=== PATIENT | female | born 1950 | race Caucasian/White ===

== ENCOUNTER 2017-04-23 19:41 | Inpatient (IN) | payer MEDICARE ==
[~2017-04-23] VITALS: Ht 166.4 cm; Wt 68.9 kg
--- NOTE | 2017-04-23 19:46 | ED.ADGEN ---
Past History Past Medical History: Depression, Other Adult General Chief Complaint Chief Complaint " I am thinking about killing my self by cutting my wrist... I have depression.. and do take meds.. but my boyfriend of 5 years just broke up with me.. I tried to kill myself before.. with over dosages..and I fell like I am running a fever too..." " I am afraid I will act on my thought to kill myself.. I got to get help..." HPI HPI Patient is a 67 year old female referred from [place] where she gets her care for depression. Pt. called ex and reported suicidal ideation and exacerbation of her depression. Patient [facility] her depression [facility] the [facility] from [place]. . Patient refused was refused acceptance at [facility] because patient may require acute admission. Patient denies any ingestion of drugs other than those are prescribed to her. Pt. patient is extremely anxious she may act upon her and impulses to kill herself. Patient also complaining of generalized myalgia, arthralgia, malaise, rhinorrhea and pharyngitis. No recent travel or specific ill contacts. No history immunosuppression. Pt. states she feels hopeless, because of breakup with boy friend. Pt has chronic insomnia, but now it is worse. Pt. has past hx PTSD, Bipolar, ADD and ADHD, Sleep apnea. Pt. states she has been taking her Abilify, citalopram and hydroxyzine manage by [place]. Review of Systems Review of Systems Constitutional: Complaints of fever or chills [] Eyes: Denies change in visual acuity, redness, or eye pain [] HENT: Complaints of nasal congestion and sore throat [] Respiratory: Denies cough or shortness of breath [] Cardiovascular: No additional information not addressed in HPI [] GI: Denies abdominal pain, nausea, vomiting, bloody stools or diarrhea [] : Denies dysuria or hematuria [] Musculoskeletal: Complaints of generalized malaise, myalgia and arthralgia Integument: Denies rash or skin lesions [] Neurologic: Denies headache, focal weakness or sensory changes [] Endocrine: Denies polyuria or polydipsia [] All other systems were reviewed and found to be within normal limits, except as documented in this note. Family History Family History Non-contributory Current Medications Current Medications Current Medications Medications (Trade) Dose Ordered Sig/Ritika Start Time Stop Time Status Last Admin Dose Admin Lactated Ringer's 1,000 ml @ 1,000 mls/hr 1X ONCE 04/23/17 21:00 04/23/17 21:59 DC 04/23/17 21:00 1,000 MLS/HR Oseltamivir Phosphate (Tamiflu) 75 mg 1X ONCE 04/23/17 21:45 04/23/17 21:46 DC 04/23/17 21:45 75 MG See Nursing for Home Meds. Allergies Allergies Allergies Coded Allergies Type Severity Reaction Last Updated Verified Penicillins Allergy Intermediate 04/23/17 Yes Sulfa (Sulfonamide Antibiotics) Allergy Intermediate 04/23/17 Yes Physical Exam Physical Exam Constitutional: Well developed, well nourished, in acute emotional distress, non -toxic appearance. [] HENT: Normocephalic, atraumatic, bilateral external ears normal, oropharynx moist, no oral exudates, nose normal. [] Eyes: PERRLA, EOMI, conjunctiva normal, no discharge. [] Neck: Normal range of motion, no tenderness, supple, no stridor. [] Cardiovascular:Heart rate regular rhythm, no murmur [] Lungs & Thorax: Bilateral breath sounds clear to auscultation [] Abdomen: Bowel sounds normal, soft, no tenderness, no masses, no pulsatile masses. [] Skin: Warm, dry, no erythema, no rash. [] Back: No tenderness, no CVA tenderness. [] Extremities: No tenderness, no cyanosis, no clubbing, ROM intact, no edema. [] Neurologic: Alert and oriented X 3, normal motor function, normal sensory function, no focal deficits noted. [] Psychologic: Affect very anxious, judgement normal, mood very depressed Current Patient Data Vital Signs Vital Signs Date Time Temp Pulse Resp B/P (MAP) Pulse Ox O2 Delivery O2 Flow Rate FiO2 04/23/17 19:50 100.4 81 20 95 Room Air Lab Results Laboratory Tests Test 04/23/17 20:05 04/23/17 21:50 Influenza Type A (Rapid) Negative (NEGATIVE) Influenza Type B (Rapid) Positive (NEGATIVE) Group A Streptococcus Rapid Negative (NEGATIVE) White Blood Count 4.0 x10^3/uL (4.0-11.0) Red Blood Count 4.17 x10^6/uL (3.50-5.40) Hemoglobin 13.0 g/dL (12.0-15.5) Hematocrit 37.0 % (36.0-47.0) Mean Corpuscular Volume 89 fL (79-100) Mean Corpuscular Hemoglobin 31 pg (25-35) Mean Corpuscular Hemoglobin Concent 35 g/dL (31-37) Red Cell Distribution Width 12.9 % (11.5-14.5) Platelet Count 177 x10^3/uL (140-400) Neutrophils (%) (Auto) 76 % (31-73) H Lymphocytes (%) (Auto) 18 % (24-48) L Monocytes (%) (Auto) 6 % (0-9) Eosinophils (%) (Auto) 0 % (0-3) Basophils (%) (Auto) 1 % (0-3) Neutrophils # (Auto) 3.0 x10^3uL (1.8-7.7) Lymphocytes # (Auto) 0.7 x10^3/uL (1.0-4.8) L Monocytes # (Auto) 0.2 x10^3/uL (0.0-1.1) Eosinophils # (Auto) 0.0 x10^3/uL (0.0-0.7) Basophils # (Auto) 0.0 x10^3/uL (0.0-0.2) Prothrombin Time 10.7 SEC (9.4-11.4) Prothrombin Time INR 1.0 (0.9-1.1) PTT 29 SEC (23-33) Urine Collection Type Unknown Urine Color Yellow Urine Clarity Hazy Urine pH 6.0 Urine Specific [place] 1.015 Urine Protein Neg (NEG-TRACE) Urine Glucose (UA) Neg mg/dL (NEG) Urine Ketones (Stick) Neg mg/dL (NEG) Urine Blood Mod (NEG) Urine Nitrite Neg (NEG) Urine Bilirubin Neg (NEG) Urine Urobilinogen Dipstick 0.2 mg/dL (0.2 mg/dL) Urine Leukocyte Esterase Neg (NEG) Urine RBC 6-10 /HPF (0-2) Urine WBC Occ /HPF (0-4) Urine Squamous Epithelial Cells Occ /LPF Urine Bacteria 0 /HPF (0-FEW) Urine Mucus Slight /LPF Sodium Level 129 mmol/L (136-145) L Potassium Level 3.8 mmol/L (3.5-5.1) Chloride Level 94 mmol/L (98-107) L Carbon Dioxide Level 26 mmol/L (21-32) Anion Gap 9 (6-14) Blood Urea Nitrogen 10 mg/dL (7-20) Creatinine 0.8 mg/dL (0.6-1.0) Estimated GFR (Cockcroft-Gault) 71.8 Glucose Level 107 mg/dL (70-99) H Calcium Level 8.7 mg/dL (8.5-10.1) Magnesium Level 1.8 mg/dL (1.8-2.4) Total Bilirubin 0.2 mg/dL (0.2-1.0) Direct Bilirubin 0.1 mg/dL (0.0-0.2) Aspartate Amino Transferase (AST) 23 U/L (15-37) Alanine Aminotransferase (ALT) 26 U/L (14-59) Alkaline Phosphatase 60 U/L (46-116) Troponin I Quantitative < 0.017 ng/mL (0-0.055) Total Protein 6.6 g/dL (6.4-8.2) Albumin 3.4 g/dL (3.4-5.0) Lipase 157 U/L (73-393) Urine Opiates Screen Neg (NEG) Urine Methadone Screen Neg (NEG) Urine Barbiturates Neg (NEG) Urine Phencyclidine Screen Neg (NEG) Urine Amphetamine/Methamphetamine Neg (NEG) Urine Benzodiazepines Screen Neg (NEG) Urine Cocaine Screen Neg (NEG) Urine Cannabinoids Screen Neg (NEG) Ethyl Alcohol Level < 10 mg/dL (0-10) Urine Ethyl Alcohol Neg (NEG) EKG EKG My interpretation EKG shows a sinus rhythm at 77 bpm. This nonspecific contour abnormalities in anterior lateral leads. But no findings acute STEMI with contralateral changes.[] Radiology/Procedures Radiology/Procedures My interpretation of chest x-ray shows no acute cardiopulmonary findings.[] Course & Med Decision Making Course & Med Decision Making Pertinent Labs and Imaging studies reviewed. (See chart for details) Discussed presentation, testing and tx. plan with Dr. Fischer- pt. to be inpatient psych. See Tele psych. report. Discussed presentation, testing and tx. plan with Dr. Peña- Admit for SI, Depression, Hyponatremia, and + Infl. B [] Final Impression Final Impression 1. Depression 2. Suicidal ideation[] 3. Hyponatremia 4. + Influenza B Problems: Dragon Disclaimer Dragon Disclaimer This electronic medical record was generated, in whole or in part, using a voice recognition dictation system. JEANNE LU MD Apr 23, 2017 19:46
[2017-04-23] MEDS ORDERED: IV RINGERS SOLUTION,LACTATED 1,000 ML IV ONE (21:00)
[2017-04-23 21:15] LABS: INFLUENZA A PATIENT NEGATIVE (NEGATIVE); INFLUENZA B PATIENT POSITIVE (NEGATIVE)
[2017-04-23] MEDS ORDERED: OSELTAMIVIR 75 MG CAPSULE PO ONE (21:45)
[2017-04-23 22:17] LABS: BASO % 1 % (0-3); EOS % 0 % (0-3); LYMPH # 0.7 x10^3/uL (1.0-4.8); LYMPH % 18 % (24-48); MEAN CORPUSCULAR HEMOGLOBIN 31 pg (25-35); MEAN CORPUSCULAR HGB CONC 35 g/dL (31-37); MEAN CORPUSCULAR VOLUME 89 fL (79-100); MONO # 0.2 x10^3/uL (0.0-1.1); MONO % 6 % (0-9); NEUT % 76 % (31-73); PLATELET COUNT 177 x10^3/uL (140-400); RED BLOOD COUNT 4.17 x10^6/uL (3.50-5.40); RED CELL DISTRIBUTION WIDTH 12.9 % (11.5-14.5)
[2017-04-23 22:29] LABS: ALBUMIN 3.4 g/dL (3.4-5.0); CALCIUM 8.7 mg/dL (8.5-10.1); CREATININE 0.8 mg/dL (0.6-1.0); DIRECT BILIRUBIN 0.1 mg/dL (0.0-0.2); GFR 71.8; MAGNESIUM 1.8 mg/dL (1.8-2.4); POTASSIUM 3.8 mmol/L (3.5-5.1); TOTAL BILIRUBIN 0.2 mg/dL (0.2-1.0); TOTAL PROTEIN 6.6 g/dL (6.4-8.2)
[2017-04-23 22:44] LABS: AMPHETAMINE/METHAMPHETAMINE NEG (NEG); BARBITURATES NEG (NEG); BENZODIAZEPINES NEG (NEG); CANNABINOIDS NEG (NEG); COCAINE NEG (NEG); METHADONE NEG (NEG); OPIATES NEG (NEG); PHENCYCLIDINE NEG (NEG)
[2017-04-23 22:51] LABS: BACTERIA,URINE 0 /HPF (0-FEW); BILIRUBIN,URINE NEG (NEG); CLARITY,URINE HAZY; COLOR,URINE YELLOW; GLUCOSE,URINE NEG (NEG); NITRITE,URINE NEG (NEG); SQUAMOUS EPITHELIAL CELL,UR OCC /LPF; UROBILINOGEN,URINE 0.2 mg/dL (0.2 mg/dL); WBC,URINE OCC /HPF (0-4)
[2017-04-24] MEDS ORDERED: LORazepam 1 MG TABLET PO PRN (00:15)
[2017-04-24] MEDS ORDERED: ONDANSETRON PF 4 MG/2 ML VIAL. IV PRN (00:15)
[2017-04-24] MEDS ORDERED: OLANZapine 2.5 MG TABLET PO ONE (00:30)
--- NOTE | 2017-04-24 01:25 | EKG ---
[address] [address] Test Date: 2017-04-23 Test Time: 21:08:17 Pat Name: MYA GARAY Department: Room: 125 B Gender: F [employer] Supervisor: NATALIE : 1950 Requested By: JEANNE LU Order Number: [id number] Reading MD: Wyatt Lainez MD Measurements Intervals [place] Rate: 77 P: 61 WI: 156 QRS: 40 QRSD: 78 T: 51 QT: 364 QTc: 414 Interpretive Statements SINUS RHYTHM Electronically Signed On 04-27-2017 10:58:39 CASE LINER by Wyatt Lainez MD
[2017-04-24] MEDS: ACETAMINOPHEN 500 MG TABLET PO PRN ×2 (01:49→16:05)
[2017-04-24 01:53] VITALS: BP 112/72
[2017-04-24] MEDS ORDERED: PNEUMOCOCCAL VAX SCREEN. MC PRN (02:45)
[2017-04-24] MEDS ORDERED: CITA20TA5 PO (05:10)
[2017-04-24] MEDS ORDERED: ARIP5TAB13 PO (05:11)
[2017-04-24 05:29] VITALS: BP 89/55
[2017-04-24] MEDS ORDERED: HYDR10TA2 PO (07:32)
--- NOTE | 2017-04-24 07:46 | RAD ---
Portable chest, 04/23/2017: History: Cough, cold, sinus drainage The heart size and pulmonary vascularity are normal. The lungs are clear. There is no evidence of pleural fluid. IMPRESSION: No acute cardiopulmonary abnormality is detected.
[2017-04-24] MEDS ORDERED: PNEUMOC CONJ VACC 23-VALENT 0.5 ML VIAL. VAX IM ONE (09:00)
[2017-04-24] MEDS: IV NORMAL SALINE 1,000ML 1,000 ML IV SCH ×3 (09:00→19:13)
[2017-04-24] MEDS: OSELTAMIVIR 75 MG CAPSULE PO SCH ×2 (09:53→20:08)
[2017-04-24] MEDS: MVI, ADULT NO.4 WITH VIT K 10 ML, FOLIC ACID 1 MG, THIAMINE 100 MG in IV NORMAL SALINE ... IV SCH ×4 (09:55)
[2017-04-24 11:08] VITALS: BP 97/62
[2017-04-24 13:56] LABS: CREATININE 0.8 mg/dL (0.6-1.0); GFR 71.8; POTASSIUM 3.4 mmol/L (3.5-5.1)
[2017-04-24 15:52] VITALS: BP 96/58
--- NOTE | 2017-04-24 18:35 | HP ---
ADMIT DATE: 04/23/2017 HISTORY OF PRESENT ILLNESS: The patient is a 67-year-old female patient who was referred from the [place] where she gets her care for depression and she called her ex- and reported suicidal ideation exacerbation of her depression. She is normally followed by Dr. Rodriguez, psychiatrist who prescribes her medication. She was refused to be admitted at [facility] because the patient may require acute admission; however, she denied any ingestion of drugs other than doses that are prescribed for her. She is extremely anxious as she may act and wants to kill herself as she has been thinking about killing herself by cutting her wrist as her boyfriend of 5 years has just broke up with her. She was basically investigated in the Emergency Room and was admitted with depression and suicidal ideation. She was also found to be hyponatremic and she tested positive for influenza B for which she was started on Tamiflu 75 mg twice a day and was started on IV fluid for her hyponatremia. We did consult with Dr. Kohler to assist in her management. PAST MEDICAL HISTORY: Significant for mild bronchial asthma that she takes her inhalers occasionally. PAST SURGICAL HISTORY: Unremarkable. ALLERGIES: She is allergic to PENICILLIN and SULFA DRUGS. MEDICATIONS: She is currently on following medications: She is on Abilify 5 mg once a day, citalopram hydrobromide 20 mg once a day, and hydroxyzine 10 mg at bedtime. FAMILY HISTORY: She has 3 elder brothers and one brother at age of 17. One of her brothers has neuropathy, the other one has COPD and 2 of them are alcoholic. Her father at age of 70 because of colon cancer. Her mother at age of 100 because of old age. SOCIAL HISTORY: She is single, has 1 daughter. She never smoked, does not drink alcohol and she used to clean houses. She was in the [employer] for about 40 years. REVIEW OF SYSTEMS: Unremarkable. PHYSICAL EXAMINATION: VITAL SIGNS: On arrival to the Emergency Room, she was noted to have a low-grade fever with a temperature of 100.4. Her heart rate was 81, blood pressure was 106/62, temperature was 100.4, respiratory rate 20, and oxygen saturation was 95%. HEENT: Showed normocephalic, atraumatic. NECK: Supple. HEART: Showed normal first and second heart sounds. No gallop, rub or murmur. CHEST: Clear to auscultation. No crepitation or rhonchi. ABDOMEN: Distended, soft, and nontender. No guarding or rigidity. No organomegaly. All hernial orifice intact. Bowel sounds normal. NEUROLOGIC: She is awake, alert, and responding appropriately. All cranial nerves intact. She moves extremities without difficulty. She ambulates without assistance or assistive devices. LABORATORY DATA: While in the Emergency Room showed that her white cell count was 4000, hemoglobin 13, hematocrit 37, MCV 89, and platelet count of 177,000. Her chemistry showed serum sodium of 129, potassium 3.8, chloride 94, bicarbonate 26, anion gap of 9, BUN 10, creatinine 0.8, estimated GFR was 72 mL per minute. Her glucose was 107, calcium was 8.7, and magnesium was 1.8. Total bilirubin, AST, ALT, alkaline phosphatase were normal. Her total protein was 6.6 and albumin 3.4. Her lipase was 157. Her prothrombin time was 10.7, INR of 1, aPTT was 29. Urinalysis showed the urine was yellow, hazy with a pH of 6, specific gravity of 1.015. The urine was negative for protein, glucose, ketones, blood, nitrite, and leukocyte esterase. There were only 6-10 rbc's, 0 wbc's, and no bacteria. Her urine toxicology screen was negative; however, her influenza B was positive. Her chest x-ray showed the heart size and pulmonary vascularity are normal. The lungs are clear. There is no evidence of pleural fluid. Therefore, the patient was admitted with a diagnosis of suicidal ideation, depression, hyponatremia, and influenza B. She is started on Tamiflu 75 mg twice a day. She is on normal saline at 150 mL per hour. We will continue with all her medication and await the evaluation by the psychiatrist. JEFRY HERNANDEZ MD DR: BEATRIZ/guillermo JOB#: [id number] / [id number]
[2017-04-24] MEDS: FLUoxetine HCL 20 MG CAPSULE PO SCH (20:08)
[2017-04-24] MEDS: OLANZapine 2.5 MG TABLET PO SCH (20:08)
[2017-04-24] MEDS: hydrOXYzine HCL 10 MG TABLET PO SCH (20:09)
[2017-04-24 21:28] VITALS: BP 87/54
[2017-04-25 00:17] VITALS: BP 99/63
[2017-04-25 05:10] VITALS: BP 106/62
[2017-04-25] MEDS: IPRATRPIUM/ALBUTEROL 0.5/2.5MG 3 ML NEBU. NEB SCH ×5 (06:00→22:03)
[2017-04-25] MEDS ORDERED: BENZOCAINE/MENTHOL LOZNGE 18'S BOX. PO PRN (06:00)
[2017-04-25 07:14] LABS: ALBUMIN 2.7 g/dL (3.4-5.0); ALBUMIN/GLOBULIN RATIO 0.8 (1.0-1.7); BASO % 0 % (0-3); CALCIUM 8.2 mg/dL (8.5-10.1); CREATININE 0.7 mg/dL (0.6-1.0); EOS % 1 % (0-3); GFR 83.7; HEMATOCRIT 34.8 % (36.0-47.0); HEMOGLOBIN 12.2 g/dL (12.0-15.5); LYMPH # 1.9 x10^3/uL (1.0-4.8); LYMPH % 56 % (24-48); MEAN CORPUSCULAR HEMOGLOBIN 31 pg (25-35); MEAN CORPUSCULAR HGB CONC 35 g/dL (31-37); MEAN CORPUSCULAR VOLUME 89 fL (79-100); MONO # 0.2 x10^3/uL (0.0-1.1); MONO % 7 % (0-9); NEUT # 1.2 x10^3uL (1.8-7.7); NEUT % 36 % (31-73); PLATELET COUNT 139 x10^3/uL (140-400); POTASSIUM 3.9 mmol/L (3.5-5.1); RED BLOOD COUNT 3.92 x10^6/uL (3.50-5.40); RED CELL DISTRIBUTION WIDTH 13.1 % (11.5-14.5); TOTAL BILIRUBIN 0.1 mg/dL (0.2-1.0); TOTAL PROTEIN 6.2 g/dL (6.4-8.2); WHITE BLOOD COUNT 3.4 x10^3/uL (4.0-11.0)
[2017-04-25] MEDS: ARIPiprazole 5 MG TABLET PO SCH (09:35)
[2017-04-25] MEDS: MVI, ADULT NO.4 WITH VIT K 10 ML, FOLIC ACID 1 MG, THIAMINE 100 MG in IV NORMAL SALINE ... IV SCH ×4 (09:35)
[2017-04-25] MEDS: CITALOPRAM 20 MG TABLET. PO SCH (09:36)
[2017-04-25] MEDS: OSELTAMIVIR 75 MG CAPSULE PO SCH ×2 (09:36→21:55)
[2017-04-25 11:33] VITALS: BP 122/69
[2017-04-25 15:14] VITALS: BP 110/60
[2017-04-25] MEDS: ENOXAPARIN 40 MG/0.4 ML DISP.SYRIN. SQ SCH (16:42)
[2017-04-25 20:03] VITALS: BP 117/85
[2017-04-25] MEDS: OLANZapine 2.5 MG TABLET PO SCH (21:55)
[2017-04-25] MEDS: FLUoxetine HCL 20 MG CAPSULE PO SCH (21:55)
[2017-04-25] MEDS: hydrOXYzine HCL 10 MG TABLET PO SCH (21:56)
[2017-04-25 22:21] VITALS: BP 125/69
[2017-04-26 05:02] VITALS: BP 129/86
[2017-04-26] MEDS: IPRATRPIUM/ALBUTEROL 0.5/2.5MG 3 ML NEBU. NEB SCH ×4 (05:54→21:47)
--- NOTE | 2017-04-26 06:21 | PN ---
DATE: 04/25/2017 SUBJECTIVE: The patient is resting slightly propped up in bed, no apparent distress. She is definitely more awake, alert today. She did not remember seeing me yesterday. She also complained of cough with a yellowish sputum. OBJECTIVE: GENERAL: On examining her, she looked well and was clearly in no apparent respiratory distress. VITAL SIGNS: Her heart rate was 75, blood pressure was 110/60, temperature was 98.9, respiratory rate was 16, and oxygen saturation was 97% on room air. LABORATORY DATA: Her lab work this morning showed that her serum sodium was 139, potassium 3.9, chloride 105, bicarbonate 24, anion gap of 10, BUN 7, creatinine 0.7. Her glucose was 112, calcium was 8.2. Total bilirubin, AST, ALT, alkaline phosphatase were normal. Total protein 6.2, albumin 2.7. Her white cell count was 3400, hemoglobin 12, hematocrit 35, MCV 89, and platelet count of 139,000. ASSESSMENT: The patient is a 67-year-old female patient who was admitted yesterday for suicidal ideation; however, she was found also to be positive for influenza B. She also was found to have hyponatremia. She is currently on Tamiflu 75 mg twice a day. Her serum sodium has improved and today it is 139, potassium also improved to 3.9. PLAN: My plan is to discontinue her IV fluid, send sputum for culture and sensitivity. We will start her on IV antibiotic. Arrangement has been made for her to go to an inpatient psych unit in [place] after she finished treatment for her influenza. JEFRY HERNANDEZ MD DR: BEATRIZ/guillermo JOB#: [id number] / [id number]
[2017-04-26 06:43] LABS: HEMATOCRIT 34.9 % (36.0-47.0); RED BLOOD COUNT 3.89 x10^6/uL (3.50-5.40); RED CELL DISTRIBUTION WIDTH 13.5 % (11.5-14.5); WHITE BLOOD COUNT 2.2 x10^3/uL (4.0-11.0)
[2017-04-26 07:01] LABS: ALBUMIN/GLOBULIN RATIO 0.8 (1.0-1.7); CALCIUM 8.5 mg/dL (8.5-10.1); CREATININE 0.7 mg/dL (0.6-1.0); GFR 83.7; POTASSIUM 3.6 mmol/L (3.5-5.1); TOTAL BILIRUBIN 0.1 mg/dL (0.2-1.0); TOTAL PROTEIN 6.6 g/dL (6.4-8.2)
[2017-04-26] MEDS: ARIPiprazole 5 MG TABLET PO SCH (08:19)
[2017-04-26] MEDS: CITALOPRAM 20 MG TABLET. PO SCH (08:19)
[2017-04-26] MEDS: OSELTAMIVIR 75 MG CAPSULE PO SCH ×2 (08:20→20:18)
[2017-04-26 11:43] VITALS: BP 99/61
[2017-04-26 15:18] VITALS: BP 110/69
[2017-04-26] MEDS: ENOXAPARIN 40 MG/0.4 ML DISP.SYRIN. SQ SCH (18:23)
[2017-04-26 19:44] VITALS: BP 119/70
[2017-04-26] MEDS: hydrOXYzine HCL 10 MG TABLET PO SCH (20:18)
[2017-04-26] MEDS: OLANZapine 2.5 MG TABLET PO SCH (20:18)
[2017-04-26] MEDS: FLUoxetine HCL 20 MG CAPSULE PO SCH (20:18)
[2017-04-26 22:52] VITALS: BP 121/74
[2017-04-27 05:28] VITALS: BP 106/67
[2017-04-27] MEDS: IPRATRPIUM/ALBUTEROL 0.5/2.5MG 3 ML NEBU. NEB SCH ×4 (05:38→21:42)
[2017-04-27 06:47] LABS: HEMATOCRIT 36.1 % (36.0-47.0); HEMOGLOBIN 12.5 g/dL (12.0-15.5); RED BLOOD COUNT 4.01 x10^6/uL (3.50-5.40); RED CELL DISTRIBUTION WIDTH 13.2 % (11.5-14.5)
[2017-04-27 07:09] LABS: ALBUMIN 3.2 g/dL (3.4-5.0); ALBUMIN/GLOBULIN RATIO 0.8 (1.0-1.7); CALCIUM 8.9 mg/dL (8.5-10.1); CREATININE 0.8 mg/dL (0.6-1.0); GFR 71.8; POTASSIUM 3.9 mmol/L (3.5-5.1); TOTAL BILIRUBIN 0.2 mg/dL (0.2-1.0)
--- NOTE | 2017-04-27 07:23 | PN ---
DATE: 04/26/2017 SUBJECTIVE: The patient is resting slightly propped up in bed, extremely depressed, stating that she is hopeless useless. However, clinically, she denied any chest pain or shortness of breath. OBJECTIVE: GENERAL: On examining her, she looked slightly pale, but not jaundiced, cyanosed, or thyromegaly. No jugular venous distension. No limb edema. VITAL SIGNS: Her heart rate was 78, blood pressure was 110/69, temperature was 98.1, respiratory rate 20, and oxygen saturation was 94%. HEAD, EYES, EARS, NOSE AND THROAT: Normocephalic, atraumatic. NECK: Supple. HEART: Showed normal first and second heart sounds. No gallop, rub, or murmur. CHEST: Clear to auscultation. No crepitation or rhonchi. ABDOMEN: Distended, soft, nontender. No guarding or rigidity. No organomegaly. Hernial orifices intact. Bowel sounds normal. NEUROLOGIC: She was grossly intact. Her intake over the last 24 hours was 3400, no output was recorded. LABORATORY DATA: Her lab work this morning showed a white cell count of 2200, hemoglobin 12, hematocrit 35, MCV 90 and platelet count of 169,000. Her chemistry showed a serum sodium of 140, potassium 3.6, chloride 105, bicarbonate 25, anion gap of 10, BUN 5, creatinine 0.7. Estimated GFR was 84 mL per minute. Her glucose 137, calcium was 8.5. Total bilirubin, AST, ALT, alkaline phosphatase were normal. Total protein 6.6, albumin 3. ASSESSMENT AND PLAN: 1. Suicidal ideation. Unfortunately, she continued to be on escitalopram and aripiprazole and fluoxetine. 2. Influenza B for which she is on Tamiflu 75 mg twice a day 3. Hyponatremia, resolved. Her serum sodium 140 mEq per liter 4. Hypokalemia, resolved. Her blood culture was negative and her throat screen and culture was negative. My plan is to continue with Tamiflu, continue with all her other medications and once she completed her 5-day treatment, she will be sent for inpatient psychiatric treatment at [place]. JEFRY HERNANDEZ MD DR: BEATRIZ/guillermo JOB#: [id number] / [id number]
[2017-04-27] MEDS: OSELTAMIVIR 75 MG CAPSULE PO SCH ×2 (09:03→20:48)
[2017-04-27] MEDS: ARIPiprazole 5 MG TABLET PO SCH (09:03)
[2017-04-27] MEDS: CITALOPRAM 20 MG TABLET. PO SCH (09:03)
[2017-04-27 15:50] VITALS: BP 106/72
[2017-04-27] MEDS: ENOXAPARIN 40 MG/0.4 ML DISP.SYRIN. SQ SCH (17:17)
[2017-04-27 19:37] VITALS: BP 111/62
[2017-04-27] MEDS: hydrOXYzine HCL 10 MG TABLET PO SCH (20:48)
[2017-04-27] MEDS: FLUoxetine HCL 20 MG CAPSULE PO SCH (20:48)
[2017-04-27] MEDS: OLANZapine 2.5 MG TABLET PO SCH (20:48)
--- NOTE | 2017-04-28 02:20 | PN ---
DATE: 04/27/2017 SUBJECTIVE: The patient is resting slightly propped up in bed, continue to voice suicidal ideation and resisting her impulse to harm herself. She was very tearful and we had a lengthy discussion. She talked about her daughter in [place] how successful she was and how she succeeded despite all the odds against her and now she is very proud of her. PHYSICAL EXAMINATION: GENERAL: When I examined her today, she looked well and was clearly in no apparent respiratory distress, pale, but no jaundice, cyanosis or thyromegaly. No jugular venous distension. No limb edema. VITAL SIGNS: Her heart rate was 68, blood pressure 106/67, temperature was 97.5, respiratory rate 20 and oxygen saturation was 96% on room air. HEAD, EYES, EARS, NOSE AND THROAT: Showed normocephalic, atraumatic. NECK: Supple. HEART: Showed normal first and second heart sounds with no gallop, rub or murmur. CHEST: Clear to auscultation. No crepitation or rhonchi. ABDOMEN: Distended, soft, nontender. No guarding or rigidity. No organomegaly. All hernial orifice intact. Bowel sounds normal. NEUROLOGIC: She was awake, alert, responding appropriately. Cranial nerves intact. She moves extremities without difficulty. She ambulates without assistance or assistive devices. Her intake was 2318, no output was recorded. LABORATORY DATA: This morning showed a serum sodium 140, potassium 3.9, chloride 103, bicarbonate 29. Anion gap of 8, BUN 8, creatinine 0.8, estimated GFR was 72 mL per minute. Her glucose was 99. Calcium was 8.9. Total bilirubin, AST, ALT, alkaline phosphatase were normal. Total protein 7, albumin 3.2. White cell count was 3000, hemoglobin 12.5, hematocrit 36, MCV 90 and platelet count of 185,000. ASSESSMENT: 1. Suicidal ideation for the patient, which continued. The patient continued to have suicidal ideation. We continued her on escitalopram, aripiprazole and fluoxetine. Unfortunately, our psychiatrist is on vacation this time. 2. Influenza B for which she is on Tamiflu 75 mg twice a day. 3. Hyponatremia, resolved. Her most recent serum sodium was 139 mEq per liter. 4. Hypokalemia, resolved. Her most recent serum potassium is 3.9. 5. Her blood and sputum culture are so far negative. PLAN: To continue with Tamiflu and hopefully tomorrow she will complete her 5 days treatment and as she continued to be suicidal prior, she will need to be sent for inpatient psychiatric treatment at [place]. JEFRY HERNANDEZ MD DR: BEATRIZ/guillermo JOB#: [id number] / [id number]
[2017-04-28 05:37] VITALS: BP 123/73
[2017-04-28] MEDS: IPRATRPIUM/ALBUTEROL 0.5/2.5MG 3 ML NEBU. NEB SCH ×4 (05:41→20:42)
[2017-04-28 06:48] LABS: HEMATOCRIT 33.5 % (36.0-47.0); HEMOGLOBIN 11.8 g/dL (12.0-15.5); RED BLOOD COUNT 3.77 x10^6/uL (3.50-5.40); WHITE BLOOD COUNT 2.6 x10^3/uL (4.0-11.0)
[2017-04-28 06:51] LABS: CALCIUM 8.7 mg/dL (8.5-10.1); CREATININE 0.7 mg/dL (0.6-1.0); GFR 83.7; POTASSIUM 4.4 mmol/L (3.5-5.1)
[2017-04-28] MEDS: ARIPiprazole 5 MG TABLET PO SCH (08:26)
[2017-04-28] MEDS: CITALOPRAM 20 MG TABLET. PO SCH (08:26)
[2017-04-28] MEDS: OSELTAMIVIR 75 MG CAPSULE PO SCH ×2 (08:26→20:39)
[2017-04-28 15:19] VITALS: BP 125/71
[2017-04-28] MEDS: ENOXAPARIN 40 MG/0.4 ML DISP.SYRIN. SQ SCH (16:56)
[2017-04-28 19:26] VITALS: BP 108/64
[2017-04-28] MEDS: hydrOXYzine HCL 10 MG TABLET PO SCH (20:39)
[2017-04-28] MEDS: OLANZapine 2.5 MG TABLET PO SCH (20:39)
[2017-04-28] MEDS: FLUoxetine HCL 20 MG CAPSULE PO SCH (20:39)
[2017-04-29 05:12] VITALS: BP 101/66
[2017-04-29] MEDS: IPRATRPIUM/ALBUTEROL 0.5/2.5MG 3 ML NEBU. NEB SCH (05:13)
[2017-04-29] MEDS: CITALOPRAM 20 MG TABLET. PO SCH (08:40)
[2017-04-29] MEDS: ARIPiprazole 5 MG TABLET PO SCH (08:40)
--- NOTE | 2017-04-29 10:38 | PN ---
DATE: 04/28/2017 SUBJECTIVE: The patient is resting slightly propped up in bed, in no apparent distress. She continues with her suicidal ideation, then stating that she is hopeless and useless. However, she is feeling better as her cough is slightly improved and she has no more aches and pains. Today is the fifth day on treatment of Tamiflu. PHYSICAL EXAMINATION: GENERAL: When I examined her today, she looked well and was clearly in no apparent respiratory distress, pale but no jaundice, cyanosis, or thyromegaly. No jugular venous distension. No limb edema. VITAL SIGNS: Her heart rate was 72, blood pressure 123/73, temperature was 97.9, respiratory rate was 16, and oxygen saturation was 94%. HEAD, EYES, EARS, NOSE AND THROAT: Showed normocephalic, atraumatic. NECK: Supple. HEART: Showed normal first and second heart sounds with no gallop, rub, or murmur. CHEST: Clear to auscultation. No crepitation or rhonchi. ABDOMEN: Distended, soft, nontender. No guarding or rigidity. No organomegaly. All hernial orifices intact. Bowel sounds normal. NEUROLOGIC: She was awake, alert, responding appropriately. All cranial nerves intact. She moves extremities without difficulty. She does ambulate without assistance or assistive devices. Her intake over the last 24 hours was 1300, no output was recorded. LABORATORY DATA: Her lab work as of this morning showed a white cell count of 2600, hemoglobin 11.8, hematocrit 33.5, MCV 89, and platelet count of 193,000. Serum sodium 139, potassium 4.4, chloride 105, bicarbonate 28, anion gap of 6, BUN 13, creatinine 0.7. Estimated GFR was 84 mL per minute. Her glucose was 100, calcium was 8.7. ASSESSMENT: 1. Suicidal ideation. The patient continued to have suicidal ideation. I will continue with her escitalopram, aripiprazole, and fluoxetine. Unfortunately, our psychiatrist is on vacation at this time. 2. Influenza B for which she is on Tamiflu 75 mg twice a day and today is the last day. 3. Hyponatremia, resolved. Her most recent serum sodium was 139. 4. Hypokalemia, resolved. Her most recent serum potassium is 3.9. PLAN: To complete Tamiflu today and hopefully get accepted at the inpatient psychiatric treatment in [place]. JEFRY HERNANDEZ MD DR: BEATRIZ/guillermo JOB#: [id number] / [id number]
== END 2017-04-29 09:03 | DRG 194 ==
LOC: EEVIPCON 19:41 → ER 19:41 → 1 SOUTH 23:45
PROVIDERS: ADMIT Family Medicine; ATTEND Family Medicine
DX: J10.1 Influenza due to other identified influenza virus with other respiratory manifestations (principal); E87.1 Hypo-osmolality and hyponatremia; R45.851 Suicidal ideations; E87.6 Hypokalemia; F51.04 Psychophysiologic insomnia; F90.9 Attention-deficit hyperactivity disorder, unspecified type; G47.30 Sleep apnea, unspecified; F43.10 Post-traumatic stress disorder, unspecified; F31.9 Bipolar disorder, unspecified; J45.909 Unspecified asthma, uncomplicated; Z80.0 Family history of malignant neoplasm of digestive organs; Z82.5 Family history of asthma and other chronic lower respiratory diseases; Z81.1 Family history of alcohol abuse and dependence; Z88.0 Allergy status to penicillin; Z88.2 Allergy status to sulfonamides
CPT/HCPCS: 36415; 71045; 80048; 80053; 80076; 80307; 81001; 83690; 83735; 84443; 84484; 85025; 85027; 85610; 85730; 87040; 87070; 87186; 87205; 87804; 87880; 93005; 94640; 96360; G0480; J1650; J7120; J7620; 99285-25; G0479; J7030